=== PATIENT | male | born 1985 | race Caucasian/White ===

== ENCOUNTER 2017-04-25 14:04 | Emergency (ER) | payer OTHER ==
[~2017-04-25] VITALS: Ht 180.3 cm; Wt 86.2 kg
[2017-04-25 14:12] VITALS: BP 139/98
== END 2017-04-25 15:36 | disposition home or self-care (01) ==
LOC: EDBD 14:04 → ER 14:04
DX: S39.012A Strain of muscle, fascia and tendon of lower back, initial encounter (principal); X50.0XXA Overexertion from strenuous movement or load, initial encounter; Y93.89 Activity, other specified; Y99.8 Other external cause status; Y92.89 Other specified places as the place of occurrence of the external cause
CPT/HCPCS: 72100